=== PATIENT | female | born 1970 | race Caucasian/White ===

== ENCOUNTER 2018-11-08 20:10 | Emergency (ER) | payer OTHER ==
[~2018-11-08] VITALS: Ht 154.9 cm; Wt 72.6 kg
[2018-11-08 20:15] VITALS: BP 127/66
--- NOTE | 2018-11-08 20:18 | NUR ---
TO LOBBY A/W BED , AMBULATORY
--- NOTE | 2018-11-08 22:50 | NUR ---
PT AMBULATED TO BED 2
--- NOTE | 2018-11-08 22:50 | NUR ---
PATIENT PRESENTS TO ED WITH SORETHROAT, COUGH, NAUSEA/VOMITING, BODYACHES, H/A,SINCE MONDAY. SKIN IS PINK/WARM/DRY; AAOX4 WITH EVEN AND STEADY GAIT; LUNGS CLEAR BL; HR EVEN AND REGULAR; PT DENIES ANY FEVER, CP, OR SOB AT THIS TIME; PATIENT STATES PAIN OF 2/10 AT THIS TIME; VSS; PATIENT POSITIONED FOR COMFORT; HOB ELEVATED; BEDRAILS UP X2; BED DOWN. ER MD MADE AWARE OF PT STATUS.
[2018-11-08] MEDS ORDERED: AMOXICILLIN 500 MG CAP PO ONE (23:35)
[2018-11-08 23:45] VITALS: BP 135/71
--- NOTE | 2018-11-08 23:45 | NUR ---
Patient discharged with v/s stable. Written and verbal after care instructions given and explained. Patient alert, oriented and verbalized understanding of instructions. Ambulatory with steady gait. All questions addressed prior to discharge. ID band removed. Patient advised to follow up with PMD. Rx of AMOXICILLIN 500MG, PROMETHAZINE HYDROCHLORIDE/DEXTROMETHORPHAN HYDROBROMIDE6.25MG-15MG/5ML given. Patient educated on indication of medication including possible reaction and side effects. Opportunity to ask questions provided and answered.
== END 2018-11-08 23:45 | disposition home or self-care (01) ==
LOC: MED 20:10
DX: J02.8 Acute pharyngitis due to other specified organisms (principal)
CPT/HCPCS: 99283